=== PATIENT | female | born 1945 | race Caucasian/White ===

== ENCOUNTER 2020-08-05 10:16 | Outpatient (CLI) | payer OTHER | END 2020-08-05 10:18 | disposition home or self-care (01) | LOC: SONOGRAMA 10:16 | PROVIDERS: ATTEND Pathology Anatomic Pathology & Clinical Pathology | DX: E04.2 Nontoxic multinodular goiter (principal); D34 Benign neoplasm of thyroid gland; E06.3 Autoimmune thyroiditis ==